=== PATIENT | female | born 1995 | race Two or more races ===

== ENCOUNTER 2022-12-19 11:04 | Emergency (ER) | payer OTHER ==
[~2022-12-19] VITALS: Ht 162.6 cm; Wt 77.1 kg
[2022-12-19 11:07] VITALS: BP 122/70
--- NOTE | 2022-12-19 11:13 | NUR ---
AMBULATED TO BED IN NO DISTRESS.
--- NOTE | 2022-12-19 11:24 | NUR ---
a/o times 4, NAD, here for BRB in stools today am, loose stool today, no abd pain, o2 sat 99% ra, sr up times 2, soft abd, no guarding, + bs diminished
[2022-12-19] MEDS ORDERED: cefTRIAXone 500 MG in LIDOCAINE MPF 1% 1 ML IM ONE (12:20)
[2022-12-19] MEDS ORDERED: DOXY-690 PO (12:22)
[2022-12-19] MEDS ORDERED: cefTRIAXone 500 MG VIAL ONE (12:33)
[2022-12-19] MEDS ORDERED: LIDOCAINE MPF 1% 5 ML ONE (12:34)
[2022-12-19] MEDS: DOXYCYCLINE 100 MG CAP PO SCH ×2 (12:41→12:50)
[2022-12-19 13:11] VITALS: BP 116/72
--- NOTE | 2022-12-19 13:11 | NUR ---
Patient discharged with v/s stable. Written and verbal after care instructions given and explained. Patient verbalized understanding. Ambulatory with steady gait. All questions addressed prior to discharge. Advised to follow up with PMD.
== END 2022-12-19 13:11 | disposition home or self-care (01) ==
LOC: MED 11:04
DX: K62.89 Other specified diseases of anus and rectum (principal); Z79.899 Other long term (current) drug therapy
CPT/HCPCS: 96372; 99283; J0696; J2001